=== PATIENT | female | born 1955 | race Caucasian/White ===

== ENCOUNTER 2016-08-01 17:41 | Emergency (ER) | payer OTHER ==
--- NOTE | 2016-08-01 17:52 | EDPHY ---
H & P Time Seen by Provider: 08/01/16 17:51 HPI/ROS: CHIEF COMPLAINT: Chest pain, diaphoresis, paresthesias. HISTORY OF PRESENT ILLNESS: The patient is a 61-year-old female who presents after an episode of nausea and diaphoresis. She has felt nauseated since this morning after breakfast. She did not eat anything all day. While driving just prior to arrival, she developed intense nausea, followed by diaphoresis. She then developed left lower chest pain and bilateral hand paresthesias. She had one episode of vomiting when she arrived to the hospital and the sx improved after vomiting. Her symptoms have mostly subsided. She denies shortness of breath, dizziness, diarrhea, shoulder pain, fever, neck pain, abdominal pain, or other complaints. She has no prior cardiac history. Her grandfather in his 50s of a heart attack but otherwise has no family history. No other RF for cardiac disease. REVIEW OF SYSTEMS: A complete 10-point review of systems was performed and is negative except for those items mentioned in the HPI. Past Medical/Surgical History: Chronic fatigue syndrome. Social History: No recent alcohol Smoking Status: Never smoked Physical Exam: General Appearance: Alert, smiling and pleasant Eyes: Pupils equal and round, no conjunctival pallor or injection ENT, Mouth: Mucous membranes moist Neck: Normal inspection Respiratory: Lungs are clear to auscultation Cardiovascular: Regular rate and rhythm Gastrointestinal: Abdomen is soft and non-tender Neurological: A&O, nonfocal, normal gait Skin: Warm and dry, no rash Extremities: Nontender, no pedal edema Psychiatric: Mood and affect normal Constitutional: Initial Vital Signs Temperature (C) 36.4 C 08/01/16 17:42 Heart Rate 73 08/01/16 17:42 Respiratory Rate 19 08/01/16 17:42 Blood Pressure 122/72 H 08/01/16 17:42 O2 Sat (%) 95 08/01/16 17:42 O2 Delivery Mode Room Air Allergies/Adverse Reactions: No Known Allergies Allergy (Verified 08/01/16 17:41) Home Medications: Medication Instructions Recorded Neurontin 03/15/09 Celecoxib 08/01/16 Famciclovir 08/01/16 Medical Decision Making - Diagnostics EKG Interpretation: EKG interpreted by me reveals normal sinus rhythm, normal axis, normal intervals , ST and T segments normal. Interpretation: normal EKG ED Course/Re-evaluation: 61-year-old female presents with N/V and near syncope, likely vasovagal in etiology. Stat EKG reveals evidence of dysrhythmia or ischemia. I do not suspect cardiac disease in this patient. I reviewed the patient's lab work. It is unremarkable. Troponin is negative. 1900: Reassessed patient. The nausea is beginning to return. 4mg IV Zofran and 1L IV fluid administered for mild dehydration. Plan for reevaluation after fluids. Much better after IV fluids and IV Zofran. Abdomen remained soft and nontender. Tolerating oral fluids well. Will discharge home. Differential Diagnosis: The differential diagnosis for the patient's symptoms included but was not limited to acute coronary syndrome, dysrhythmia, gastroenteritis, gastritis, appendicitis, and medication side effect. - Data Points Laboratory Results: Laboratory Results 08/01/16 17:50 08/01/16 17:50 08/01/16 08/01/16 17:50 17:50 WBC 9.25 10^3/uL 10^3/uL (3.80-9.50) RBC 4.97 10^6/uL 10^6/uL (4.18-5.33) Hgb 15.1 g/dL g/dL (12.6-16.3) Hct 43.6 % % (38.0-47.0) MCV 87.7 fL fL (81.5-99.8) MCH 30.4 pg pg (27.9-34.1) MCHC 34.6 g/dL g/dL (32.4-36.7) RDW 13.9 % % (11.5-15.2) Plt Count 223 10^3/uL 10^3/uL (150-400) MPV 11.0 fL fL (8.7-11.7) Neut % (Auto) 85.8 % H % (39.3-74.2) Lymph % (Auto) 9.3 % L % (15.0-45.0) [place] % (Auto) 3.8 % L % (4.5-13.0) Eos % (Auto) 0.6 % % (0.6-7.6) Baso % (Auto) 0.2 % L % (0.3-1.7) Nucleat RBC Rel Count 0.0 % % (0.0-0.2) Absolute Neuts (auto) 7.93 10^3/uL H 10^3/uL (1.70-6.50) Absolute Lymphs (auto) 0.86 10^3/uL L 10^3/uL (1.00-3.00) Absolute Monos (auto) 0.35 10^3/uL 10^3/uL (0.30-0.80) Absolute Eos (auto) 0.06 10^3/uL 10^3/uL (0.03-0.40) Absolute Basos (auto) 0.02 10^3/uL 10^3/uL (0.02-0.10) Absolute Nucleated RBC 0.00 10^3/uL 10^3/uL (0-0.01) Immature Gran % 0.3 % % (0.0-1.1) Immature Gran # 0.03 10^3/uL 10^3/uL (0.00-0.10) Sodium 141 mEq/L mEq/L (134-144) Potassium 4.1 mEq/L mEq/L (3.5-5.2) Chloride 109 mEq/L mEq/L (97-110) Carbon Dioxide 22 mEq/l mEq/l (22-31) Anion Gap 10 mEq/L mEq/L (8-16) BUN 25 mg/dL H mg/dL (7-23) Creatinine 1.1 mg/dL H mg/dL (0.6-1.0) Estimated GFR 50 Glucose 104 mg/dL H mg/dL (70-100) Calcium 9.9 mg/dL mg/dL (8.5-10.4) Troponin I < 0.012 ng/mL ng/mL (0-0.034) Medications Given: Discontinued Medications Sodium Chloride (Ns) 1,000 mls @ 0 mls/hr IV ONCE ONE PRN Reason: Wide Open Stop: 08/01/16 18:43 Last Admin: 08/01/16 19:07 Dose: 1,000 mls Departure - Departure Disposition: Home, Routine, Self-Care Clinical Impression: Near syncope Vomiting Qualifiers: Vomiting type: unspecified Vomiting Intractability: non-intractable Nausea presence: with nausea Qualified Code(s): R11.2 - Nausea with vomiting, unspecified Condition: Good Instructions: Acute Nausea and Vomiting (ED), Near Syncope (ED) Additional Instructions: Drink plenty of fluids and be sure to get rest. Follow up with your primary care provider for reevaluation. Return to the emergency department for any serious worsening of condition. Referrals: Stephanie Mark MD [Primary Care Provider] - As per Instructions Report Scribed for: Ro Hannon Report Scribed by: Kenny Shearer Date of Report: 08/01/16 Time of Report: 17:52 Physician Review and Approval Statement: 08/01/16 17:52 Portions of this note were transcribed by a medical records clerk. I personally performed a history, physical exam, medical decision making, and confirmed accuracy of information the transcribed note.
--- NOTE | 2016-08-01 17:53 | CPEKG ---
Heart Rate: 66 RR Interval: 909 P-R Interval: 160 QRSD Interval: 96 QT Interval: 428 QTC Interval: 449 P [place]: 49 QRS [place]: 60 T Wave [place]: 63 EKG Severity - NORMAL ECG - EKG Impression: SINUS RHYTHM Electronically Signed By: Ro Hannon 01-Aug-2016 19:31:31
[2016-08-01 18:20] LABS: % IMMATURE GRANULYOCYTES 0.3 % (0.0-1.1); ABSOLUTE IMMATURE GRANULOCYTES 0.03 10^3/uL (0.00-0.10); ADD DIFF? NO; ADD MORPH? NO; ADD SCAN? NO; ATYPICAL LYMPHOCYTE FLAG 0 (0-99); FRAGMENT RBC FLAG 10 (0-99); HEMATOCRIT 43.6 % (38.0-47.0); HEMOGLOBIN 15.1 g/dL (12.6-16.3); LEFT SHIFT FLG 0 (0-99); LIPEMIA HEMOLYSIS FLAG 90 (0-99); MEAN CELL HEMOGLOBIN 30.4 pg (27.9-34.1); MEAN CELL HEMOGLOBIN CONCENTR. 34.6 g/dL (32.4-36.7); MEAN CELL VOLUME 87.7 fL (81.5-99.8); PLATELET CLUMPS FLAG 0 (0-99); PLATELET COUNT 223 10^3/uL (150-400); RED BLOOD CELL COUNT 4.97 10^6/uL (4.18-5.33); RED CELL DISTRIBUTION WIDTH 13.9 % (11.5-15.2)
[2016-08-01 18:37] LABS: ANION GAP 10 mEq/L (8-16); CALCIUM 9.9 mg/dL (8.5-10.4); CARBON DIOXIDE 22 mEq/l (22-31); CHLORIDE 109 mEq/L (97-110); CREATININE 1.1 mg/dL (0.6-1.0); GLOMERULAR FILTRATION RATE 50; GLUCOSE 104 mg/dL (70-100); POTASSIUM 4.1 mEq/L (3.5-5.2); SODIUM 141 mEq/L (134-144)
[2016-08-01] MEDS ORDERED: NS 1,000 ML IV ONE (18:42)
[2016-08-01 18:48] LABS: TROPONIN I < 0.012 ng/mL (0-0.034)
[2016-08-01] MEDS ORDERED: ONDANSETRON 4 MG/2 ML VIAL ONE (18:58)
[2016-08-01] MEDS ORDERED: ONDANSETRON 4MG PREPACK#2 BTL TAKEHOME ONE (19:42)
[2016-08-01 19:48] VITALS: BP 126/76; PULSE 70; RESP 14; TEMP 98.4; O2SAT 94
== END 2016-08-01 19:47 | disposition home or self-care (01) ==
DX: R11.2 Nausea with vomiting, unspecified (principal); R55 Syncope and collapse
CPT/HCPCS: J2405

== ENCOUNTER 2017-03-04 09:07 | Emergency (ER) | payer OTHER ==
[2017-03-04 09:22] VITALS: TEMP 98.2
--- NOTE | 2017-03-04 09:32 | CPEKG ---
Heart Rate: 58 RR Interval: 1034 P-R Interval: 172 QRSD Interval: 96 QT Interval: 444 QTC Interval: 437 P [place]: 45 QRS [place]: 51 T Wave [place]: 60 EKG Severity - ABNORMAL ECG - EKG Impression: SINUS RHYTHM EKG Impression: NONSPECIFIC T ABNORMALITIES, ANTERIOR LEADS Electronically Signed By: Pina Motta 04-Mar-2017 15:26:02
--- NOTE | 2017-03-04 09:54 | EDPHY ---
H & P Stated Complaint: Intermittent L sided CP x 6-7 days ago;Feels SOB when upright HPI/ROS: CHIEF COMPLAINT: Chest discomfort HISTORY OF PRESENT ILLNESS: The patient is a 61 y/o female arriving with her complaining of intermittent left chest discomfort for the last several days with associated dyspnea. She has a history of chronic fatigue syndrome and POTS and notices intermittent dyspnea and lightheadedness while sitting and standing up. She does not take medication for this. This morning she noticed associated left shoulder pain. She has not taken anything for her pain. She denies associated neck or jaw pain, weakness, paresthesias, heart burn. She had a stress test about 7 years ago and does not remember any specific follow up for this. No history of catheterization, hypertension, or diabetes. She reports baseline fevers in the evening related to her chronic fatigue syndrome and some intermittent coughing, not new and not changed. REVIEW OF SYSTEMS: A ten point review of systems was performed and is negative with the exception of the items mentioned in the HPI. Past medical history: Autonomic disorder - POTS; chronic fatigue syndrome; hypercholesterolemia - not on medication Past surgical history: Noncontributory Family history: Grandfather of [place] age 51. Possible hypertension in one parent. Social history: at bedside. Nonsmoker. Very occasional alcohol use. Retired, formerly worked in television. PCP: Dr. Stephanie Pace. Prior medical records reviewed including ED visit 08/01/16 for chest pain. General Appearance: Alert. Vital signs reviewed. Eyes: Pupils equal and round, no conjunctival injection, no discharge. Anicteric. ENT, Mouth: Mucous membranes are moist, no oropharyngeal erythema or edema. Neck: No lymphadenopathy, supple. Respiratory: Lungs are clear to auscultation; no wheezes, rales, or rhonchi. Cardiovascular: Regular rate and rhythm; no murmur, rub, or gallop. Gastrointestinal: Abdomen is soft and nontender, no masses or organomegaly, bowel sounds normal. Skin: Warm and dry, no rashes on exposed skin, normal color. Back: Nontender to palpation over the thoracolumbar spine. No CVAT. Extremities: No lower extremity edema, no calf tenderness or swelling. Neurological: Alert and oriented. Moving all four extremities easily and equally. Psychiatric: Normal affect. - Personal History Current Tetanus Diphtheria and Acellular Pertussis (TDAP): Yes - Medical/Surgical History Hx Asthma: No Hx Chronic Respiratory Disease: No Hx Diabetes: No Hx Cardiac Disease: No Hx Renal Disease: No Hx Cirrhosis: No Hx Alcoholism: No Hx HIV/AIDS: No Hx Splenectomy or Spleen Trauma: No Other PMH: CHRONIC FATIGUE. hypotension r/t autonomic disorder - Social History Smoking Status: Never smoked Constitutional: Initial Vital Signs Temperature (C) 36.8 C 03/04/17 09:15 Heart Rate 77 03/04/17 09:15 Respiratory Rate 16 03/04/17 09:15 Blood Pressure 107/66 03/04/17 09:15 O2 Sat (%) 99 03/04/17 09:15 O2 Delivery Mode Room Air Allergies/Adverse Reactions: No Known Allergies Allergy (Verified 03/04/17 09:18) Home Medications: Medication Instructions Recorded Famciclovir [Famvir 250 MG (*)] 250 mg PO 03/04/17 Gabapentin [Neurontin 100 MG (*)] 100 mg PO HS 03/04/17 Wellchol 03/04/17 celeCOXIB [CeleBREX] 100 mg PO 03/04/17 Medical Decision Making - Diagnostics Imaging: I viewed and interpreted images myself ED Course/Re-evaluation: This is a 61 y/o female with a history of autonomic disorder who presents with a several-day history of intermittent left-sided chest "discomfort" with new associated shoulder pain beginning this morning. Her exam is unremarkable. Plan for IV, labs, EKG, and chest x-ray. 324mg PO aspirin administered. The 12 lead EKG was interpreted by myself. Sinus rhythm rate 58. Anterior T wave inversions new from July. See hard copy and/or "tracemaster" electronic copy for interpretation. Reevaluated patient and discussed findings. Chest x-ray negative. BGL slightly low at 57. Troponin normal. I offered admission for provocative testing, but she would prefer to complete an outpatient work-up. I've referred her to [facility], where she was evaluated previously. Return precautions discussed. She is comfortable with this plan. HEART score is one, making risk of major cardiac event within six weeks quite low (less than 2%). She does not have her try symptoms I do not think that her pain represents a pulmonary embolus. I find no evidence of infection. She has not had chest trauma. Consulted with Sade from [facility]. They will evaluate her as an outpatient with a TOMAS scan as she is unable to tolerate prolonged physical exertion due to her CFS. Differential Diagnosis: Chest pain including but not limited to myocardial ischemia, pulmonary embolus, chest wall pain, pleural inflammation and pulmonary infectious causes. - Data Points Laboratory Results: Laboratory Results 03/04/17 09:38 03/04/17 09:38 Medications Given: Discontinued Medications Aspirin (Aspirin) 324 mg PO EDNOW ONE Stop: 03/04/17 10:11 Last Admin: 03/04/17 10:15 Dose: 324 mg Departure - Departure Disposition: Home, Routine, Self-Care Clinical Impression: Chest pain Qualifiers: Chest pain type: other chest pain Qualified Code(s): R07.89 - Other chest pain ; R07.8 - Other chest pain Condition: Good Instructions: Chest Pain (ED) Additional Instructions: Follow up with Vladimir Joseph this week. I recommend calling today to make an appointment. They are aware you were seen here and will schedule you for a TOMAS scan when you call. Return for any worsening of condition. Referrals: Stephanie Mark MD [Primary Care Provider] - As per Instructions Maurilio Valdez MD [Medical Doctor] - As per Instructions Report Scribed for: Pina Motta Report Scribed by: Olivia Garcia Date of Report: 03/04/17 Time of Report: 10: Physician Review and Approval Statement: 03/04/17 09:53 Portions of this note were transcribed by the medical supervisor. I, Dr. Pina Motta, personally performed the history, physical exam, and medical decision- making; and confirmed the accuracy of the information in the transcribed note.
[2017-03-04] MEDS ORDERED: ASPIRIN 81 MG CHEWABLE TAB PO ONE (10:10)
[2017-03-04 10:14] LABS: % IMMATURE GRANULYOCYTES 0.2 % (0.0-1.1); ABSOLUTE IMMATURE GRANULOCYTES 0.01 10^3/uL (0.00-0.10); ADD DIFF? NO; ADD MORPH? NO; ADD SCAN? NO; ATYPICAL LYMPHOCYTE FLAG 20 (0-99); FRAGMENT RBC FLAG 0 (0-99); HEMATOCRIT 41.5 % (38.0-47.0); HEMOGLOBIN 14.4 g/dL (12.6-16.3); LEFT SHIFT FLG 0 (0-99); LIPEMIA HEMOLYSIS FLAG 90 (0-99); MEAN CELL HEMOGLOBIN CONCENTR. 34.7 g/dL (32.4-36.7); MEAN CELL VOLUME 89.4 fL (81.5-99.8); MEAN PLATELET VOLUME 11.3 fL (8.7-11.7); PLATELET CLUMPS FLAG 30 (0-99); PLATELET COUNT 205 10^3/uL (150-400); RED BLOOD CELL COUNT 4.64 10^6/uL (4.18-5.33); RED CELL DISTRIBUTION WIDTH 14.1 % (11.5-15.2)
[2017-03-04 10:22] LABS: ANION GAP 9 mEq/L (8-16); CALCIUM 9.6 mg/dL (8.5-10.4); CARBON DIOXIDE 24 mEq/l (22-31); CHLORIDE 108 mEq/L (97-110); CREATININE 1.1 mg/dL (0.6-1.0); GLOMERULAR FILTRATION RATE 50; GLUCOSE 57 mg/dL (70-100); SODIUM 141 mEq/L (134-144)
[2017-03-04 10:33] LABS: TROPONIN I < 0.012 ng/mL (0.000-0.034)
[2017-03-04 13:16] VITALS: BP 108/69; PULSE 56; RESP 18; O2SAT 99
== END 2017-03-04 13:16 | disposition home or self-care (01) ==
DX: R07.89 Other chest pain (principal)

== ENCOUNTER 2017-04-05 09:47 | Emergency (ER) | payer OTHER ==
[2017-04-05 09:56] VITALS: RESP 18; TEMP 97.5
[2017-04-05 10:34] LABS: % IMMATURE GRANULYOCYTES 0.2 % (0.0-1.1); ABSOLUTE IMMATURE GRANULOCYTES 0.01 10^3/uL (0.00-0.10); ADD DIFF? NO; ADD MORPH? NO; ADD SCAN? NO; ATYPICAL LYMPHOCYTE FLAG 0 (0-99); FRAGMENT RBC FLAG 0 (0-99); HEMATOCRIT 41.9 % (38.0-47.0); LEFT SHIFT FLG 0 (0-99); LIPEMIA HEMOLYSIS FLAG 90 (0-99); MEAN CELL HEMOGLOBIN 31.6 pg (27.9-34.1); MEAN CELL HEMOGLOBIN CONCENTR. 35.8 g/dL (32.4-36.7); MEAN CELL VOLUME 88.2 fL (81.5-99.8); MEAN PLATELET VOLUME 11.4 fL (8.7-11.7); PLATELET CLUMPS FLAG 0 (0-99); PLATELET COUNT 208 10^3/uL (150-400); RED BLOOD CELL COUNT 4.75 10^6/uL (4.18-5.33); RED CELL DISTRIBUTION WIDTH 13.8 % (11.5-15.2)
--- NOTE | 2017-04-05 10:38 | EDPHY ---
H & P Stated Complaint: Vision changes, confusion Time Seen by Provider: 04/05/17 09:58 HPI/ROS: CHIEF COMPLAINT: Mild intermittent confusion HISTORY OF PRESENT ILLNESS: The patient presents to the ED after she developed 2 episodes of mild intermittent confusion over the past week. The patient reports symptoms that occur in the morning when she gets up out of bed. She does have some mild associated lightheadedness. The patient denies any acute peripheral numbness or weakness. The patient does have a history of chronic fatigue syndrome and does have some mild neuropathic changes at baseline which are unchanged. The patient has a chronic mild cough which is not acutely worsened. The patient denies any history of fall or trauma. She denies a chiropractic or cervical manipulation. The patient denies any complaints of an acute headache. The patient has been stable on her long-term outpatient medications. The patient denies any chest pain or shortness of breath. The patient did recently undergo and underwent fall nuclear stress test. REVIEW OF SYSTEMS: A comprehensive 10 point review of systems is otherwise negative aside from elements mentioned in the history of present illness. Source: Patient Exam Limitations: No limitations - Personal History Current Tetanus/Diphtheria Vaccine: Yes Current Tetanus Diphtheria and Acellular Pertussis (TDAP): Yes - Medical/Surgical History Hx Asthma: No Hx Chronic Respiratory Disease: No Hx Diabetes: No Hx Cardiac Disease: No Hx Renal Disease: No Hx Cirrhosis: No Hx Alcoholism: No Hx HIV/AIDS: No Hx Splenectomy or Spleen Trauma: No Other PMH: CHRONIC FATIGUE, global hypoperfusion,. hypotension r/t autonomic disorder, - Social History Smoking Status: Never smoked - Physical Exam Exam: General Appearance: Alert, no distress Eyes: Pupils equal and round no pallor or injection ENT, Mouth: Mucous membranes moist Respiratory: There are no retractions, lungs are clear to auscultation Cardiovascular: Regular rate and rhythm Gastrointestinal: Abdomen is soft and nontender, no masses, bowel sounds normal Neurological: A&O, normal motor function, normal sensory exam, normal cranial nerves Skin: Warm and dry, no rashes Musculoskeletal: Neck is supple nontender Extremities: symmetrical, full range of motion Psychiatric: Patient is oriented X 3, there is no agitation Constitutional: Initial Vital Signs Temperature (C) 36.4 C 04/05/17 09:51 Heart Rate 66 04/05/17 09:51 Respiratory Rate 18 04/05/17 09:51 Blood Pressure 113/83 H 04/05/17 09:51 O2 Sat (%) 98 04/05/17 09:51 O2 Delivery Mode Room Air Allergies/Adverse Reactions: No Known Allergies Allergy (Verified 03/04/17 09:18) Home Medications: Medication Instructions Recorded Famciclovir [Famvir 250 MG (*)] 250 mg PO 03/04/17 Gabapentin [Neurontin 100 MG (*)] 100 mg PO HS 03/04/17 celeCOXIB [CeleBREX] 100 mg PO 03/04/17 Medical Decision Making - Diagnostics EKG Interpretation: EKG: Complete interpretation has been separately recorded in the [facility] archive. Summary impression: Sinus rhythm, rate 55 ED Course/Re-evaluation: The patient presents to the ED with 2 discrete episodes of mild dizziness and confusion which were precipitated by positional changes. The patient is noted to be neurologically intact in the emergency department. She has no evidence of an obvious arrhythmia. She is not anemic. I find the patient's neurologic examination to be completely normal. She has nothing to suggest meningitis. She has no bruits on exam. She had no localizing neurologic symptoms suggestive of a TIA. The patient has no clinical evidence of meningitis. She does have a complicated past medical history with chronic fatigue syndrome and is on a number of anti viral medications for treatment of this condition. At this point time I do not feel that further workup is indicated. I have asked the patient to follow up with her primary care provider. She should return to the emergency department for the development of a severe headache, persistent neurologic symptoms, unilateral neurologic symptoms or other concerns. Differential Diagnosis: Differential diagnosis considered includes stroke, TIA, positional syncope - Data Points Laboratory Results: Laboratory Results 04/05/17 10:10 04/05/17 10:10 04/05/17 04/05/17 10:10 10:10 WBC 4.28 10^3/uL 10^3/uL (3.80-9.50) RBC 4.75 10^6/uL 10^6/uL (4.18-5.33) Hgb 15.0 g/dL g/dL (12.6-16.3) Hct 41.9 % % (38.0-47.0) MCV 88.2 fL fL (81.5-99.8) MCH 31.6 pg pg (27.9-34.1) MCHC 35.8 g/dL g/dL (32.4-36.7) RDW 13.8 % % (11.5-15.2) Plt Count 208 10^3/uL 10^3/uL (150-400) MPV 11.4 fL fL (8.7-11.7) Neut % (Auto) 58.7 % % (39.3-74.2) Lymph % (Auto) 30.6 % % (15.0-45.0) [place] % (Auto) 7.9 % % (4.5-13.0) Eos % (Auto) 1.4 % % (0.6-7.6) Baso % (Auto) 1.2 % % (0.3-1.7) Nucleat RBC Rel Count 0.0 % % (0.0-0.2) Absolute Neuts (auto) 2.51 10^3/uL 10^3/uL (1.70-6.50) Absolute Lymphs (auto) 1.31 10^3/uL 10^3/uL (1.00-3.00) Absolute Monos (auto) 0.34 10^3/uL 10^3/uL (0.30-0.80) Absolute Eos (auto) 0.06 10^3/uL 10^3/uL (0.03-0.40) Absolute Basos (auto) 0.05 10^3/uL 10^3/uL (0.02-0.10) Absolute Nucleated RBC 0.00 10^3/uL 10^3/uL (0-0.01) Immature Gran % 0.2 % % (0.0-1.1) Immature Gran # 0.01 10^3/uL 10^3/uL (0.00-0.10) Sodium 144 mEq/L mEq/L (134-144) Potassium 3.8 mEq/L mEq/L (3.5-5.2) Chloride 111 mEq/L H mEq/L (97-110) Carbon Dioxide 23 mEq/l mEq/l (22-31) Anion Gap 10 mEq/L mEq/L (8-16) BUN 18 mg/dL mg/dL (7-23) Creatinine 1.0 mg/dL mg/dL (0.6-1.0) Estimated GFR 56 Glucose 79 mg/dL mg/dL (70-100) Calcium 10.0 mg/dL mg/dL (8.5-10.4) Departure - Departure Disposition: Home, Routine, Self-Care Clinical Impression: Confusion Condition: Good Instructions: Altered Mental Status (ED) Additional Instructions: 1. Your EKG and blood test demonstrate no obvious abnormality. 2. Please return to the emergency department for the development of any progressive or worsening neurologic symptoms, severe headache or fever. 3. Please schedule a follow-up appointment to be seen by her primary care provider within the next week. Referrals: Stephanie Mark MD [Primary Care Provider] - As per Instructions
[2017-04-05 10:50] LABS: ANION GAP 10 mEq/L (8-16); CARBON DIOXIDE 23 mEq/l (22-31); CHLORIDE 111 mEq/L (97-110); GLOMERULAR FILTRATION RATE 56; GLUCOSE 79 mg/dL (70-100); POTASSIUM 3.8 mEq/L (3.5-5.2); SODIUM 144 mEq/L (134-144)
--- NOTE | 2017-04-05 11:19 | CPEKG ---
Heart Rate: 55 RR Interval: 1091 P-R Interval: 188 QRSD Interval: 100 QT Interval: 460 QTC Interval: 440 P [place]: 34 QRS [place]: 48 T Wave [place]: 50 EKG Severity - BORDERLINE ECG - EKG Impression: SINUS RHYTHM EKG Impression: BORDERLINE T ABNORMALITIES, ANTERIOR LEADS Electronically Signed By: Jaycob Caraballo 05-Apr-2017 11:28:37
[2017-04-05 11:40] VITALS: BP 126/88; PULSE 84; O2SAT 97
== END 2017-04-05 11:39 | disposition home or self-care (01) ==
DX: R41.0 Disorientation, unspecified (principal)

== ENCOUNTER → 2017-04-09 | Outpatient (CLI) | payer OTHER | LOC: FIMAGING 09:42 | PROVIDERS: ATTEND Internal Medicine | DX: Z12.31 Encounter for screening mammogram for malignant neoplasm of breast (principal) | CPT/HCPCS: G0202 ==

== ENCOUNTER 2018-02-25 14:19 | Observation (INO) | payer OTHER ==
--- NOTE | 2018-02-25 15:12 | EDPHY ---
H & P Stated Complaint: Expressive Aphasia Time Seen by Provider: 02/25/18 14:37 HPI/ROS: CHIEF COMPLAINT: Difficulty with word-finding HISTORY OF PRESENT ILLNESS: 62-year-old female presents with difficulty with word-finding. She was reading an e-mail at 10:00 a.m., when she suddenly was unable to recognize the word on the computer. She tried reading the newspaper, but still was unable to read. She told her about the problem and realized that she was unable to name objects. Associated with a slight weakness left side of face. Took an aspirin. She laid down and rested for 90 min. When she awoke, the speech difficulty facial weakness had resolved. This afternoon, she feels slightly off balance when she stands up and walks. This is not unusual for her and she does not feel this is a new problem. No extremity numbness or weakness. No prior history of TIA or CVA. REVIEW OF SYSTEMS: complete 10 point ROS reviewed and is negative except for the noted elements in the HPI - Personal History Current Tetanus/Diphtheria Vaccine: Yes - Medical/Surgical History Hx Asthma: No Hx Chronic Respiratory Disease: No Hx Diabetes: No Hx Cardiac Disease: No Hx Renal Disease: No Hx Cirrhosis: No Hx Alcoholism: No Hx HIV/AIDS: No Hx Splenectomy or Spleen Trauma: No Other PMH: CHRONIC FATIGUE, global hypoperfusion,. hypotension r/t autonomic disorder, - Social History Smoking Status: Never smoked Constitutional: Initial Vital Signs Temperature (C) 36.6 C 02/25/18 14:27 Heart Rate 64 02/25/18 14:27 Respiratory Rate 18 02/25/18 14:27 Blood Pressure 128/76 H 02/25/18 14:27 O2 Sat (%) 100 02/25/18 14:27 O2 Delivery Mode Room Air Allergies/Adverse Reactions: No Known Allergies Allergy (Verified 02/25/18 14:32) Home Medications: Medication Instructions Recorded Cholecalciferol Vit D3 [Vitamin D3 5,000 units PO DAILY 02/25/18 (*)] Famciclovir 500 mg PO BID 02/25/18 Gabapentin [Neurontin 300 MG (*)] 600 mg PO HS 02/25/18 Herbals/Supplements -Info Only 1 ea PO DAILY 02/25/18 Multivitamins [Multivitamin (*)] 1 each PO DAILY 02/25/18 celeCOXIB [Celebrex (*)] 200 mg PO DAILY 02/25/18 Medical Decision Making - Diagnostics EKG Interpretation: EKG interpreted by me reveals normal sinus rhythm, rate 60, low voltage in the limb leads, T-wave inversions in leads V2 and V3. Imaging Results: Imaging Impressions Head CT 02/25/18 15:09 Impression: 1. Normal CT brain without contrast. 2. Consider MRI of the brain, if there is continued clinical concern. Findings and recommendations discussed with Emergency Department physician, MINGO GIBBONS at 15:34 hour, 02/25/2018. Final report concurs with initial preliminary interpretation. Imaging: Discussed imaging studies w/ score caller Radiologist, I viewed and interpreted images myself ED Course/Re-evaluation: This patient presents with expressive aphasia, now resolved. Clinical presentation consistent with TIA. Stat EKG reveals no evidence of ischemia or dysrhythmia. CT scan of the brain ordered. CT scan is unremarkable, no evidence of acute infarct or hemorrhage. The patient already took aspirin today. Neurologic exam remains normal and unchanged. She will need admission for workup of TIA. The hospitalist service was consulted for admission. Differential Diagnosis: Altered mental status including but not limited to hypoglycemia, infectious process, electrolyte abnormality, head injury, CVA, and intoxicants. - Data Points Laboratory Results: Laboratory Results 02/25/18 14:45 02/25/18 14:45 02/25/18 02/25/18 02/25/18 15:15 14:51 14:45 WBC RBC Hgb POC Hgb 13.9 gm/dL gm/dL (12.6-16.3) Hct POC Hct 41 % % (38-47) MCV MCH MCHC RDW Plt Count MPV Neut % (Auto) Lymph % (Auto) [place] % (Auto) Eos % (Auto) Baso % (Auto) Nucleat RBC Rel Count Absolute Neuts (auto) Absolute Lymphs (auto) Absolute Monos (auto) Absolute Eos (auto) Absolute Basos (auto) Absolute Nucleated RBC Immature Gran % Immature Gran # ESR PT 13.3 SEC SEC (12.0-15.0) INR 0.99 (0.83-1.16) APTT 30.4 SEC SEC (23.0-38.0) POC Sodium 143 mEq/L mEq/L (135-145) Sodium POC Potassium 3.7 mEq/L mEq/L (3.3-5.0) Potassium POC Chloride 112 mEq/L H mEq/L (97-110) Chloride Carbon Dioxide Anion Gap POC BUN 21 mg/dL mg/dL (7-23) BUN Creatinine POC Creatinine 0.9 mg/dL mg/dL (0.6-1.0) Estimated GFR Glucose POC Glucose 96 mg/dL mg/dL (70-100) Hemoglobin A1c Estim Average Glucose Calcium POC Troponin I 0.00 ng/mL ng/mL (0.00-0.08) 02/25/18 02/25/18 02/25/18 14:45 14:45 14:45 WBC RBC Hgb POC Hgb Hct 41.6 % % (38.0-47.0) POC Hct MCV MCH MCHC RDW Plt Count MPV Neut % (Auto) Lymph % (Auto) [place] % (Auto) Eos % (Auto) Baso % (Auto) Nucleat RBC Rel Count Absolute Neuts (auto) Absolute Lymphs (auto) Absolute Monos (auto) Absolute Eos (auto) Absolute Basos (auto) Absolute Nucleated RBC Immature Gran % Immature Gran # ESR 7 MM/HR MM/HR (0-30) PT INR APTT POC Sodium Sodium 141 mEq/L mEq/L (135-145) POC Potassium Potassium 4.1 mEq/L mEq/L (3.3-5.0) POC Chloride Chloride 111 mEq/L H mEq/L (97-110) Carbon Dioxide 20 mEq/l L mEq/l (22-31) Anion Gap 10 mEq/L mEq/L (6-14) POC BUN BUN 20 mg/dL mg/dL (7-23) Creatinine 1.0 mg/dL mg/dL (0.6-1.0) POC Creatinine Estimated GFR 56 Glucose 96 mg/dL mg/dL (70-100) POC Glucose Hemoglobin A1c 5.3 % % (4.0-6.0) Estim Average Glucose 105 mg/dL mg/dL (68-126) Calcium 10.2 mg/dL mg/dL (8.5-10.4) POC Troponin I 02/25/18 14:45 WBC 5.41 10^3/uL 10^3/uL (3.80-9.50) RBC 4.77 10^6/uL 10^6/uL (4.18-5.33) Hgb 14.6 g/dL g/dL (12.6-16.3) POC Hgb Hct 41.4 % % (38.0-47.0) POC Hct MCV 86.8 fL fL (81.5-99.8) MCH 30.6 pg pg (27.9-34.1) MCHC 35.3 g/dL g/dL (32.4-36.7) RDW 14.0 % % (11.5-15.2) Plt Count 211 10^3/uL 10^3/uL (150-400) MPV 11.5 fL fL (8.7-11.7) Neut % (Auto) 58.5 % % (39.3-74.2) Lymph % (Auto) 31.4 % % (15.0-45.0) [place] % (Auto) 8.1 % % (4.5-13.0) Eos % (Auto) 0.9 % % (0.6-7.6) Baso % (Auto) 0.9 % % (0.3-1.7) Nucleat RBC Rel Count 0.0 % % (0.0-0.2) Absolute Neuts (auto) 3.16 10^3/uL 10^3/uL (1.70-6.50) Absolute Lymphs (auto) 1.70 10^3/uL 10^3/uL (1.00-3.00) Absolute Monos (auto) 0.44 10^3/uL 10^3/uL (0.30-0.80) Absolute Eos (auto) 0.05 10^3/uL 10^3/uL (0.03-0.40) Absolute Basos (auto) 0.05 10^3/uL 10^3/uL (0.02-0.10) Absolute Nucleated RBC 0.00 10^3/uL 10^3/uL (0-0.01) Immature Gran % 0.2 % % (0.0-1.1) Immature Gran # 0.01 10^3/uL 10^3/uL (0.00-0.10) ESR PT INR APTT POC Sodium Sodium POC Potassium Potassium POC Chloride Chloride Carbon Dioxide Anion Gap POC BUN BUN Creatinine POC Creatinine Estimated GFR Glucose POC Glucose Hemoglobin A1c Estim Average Glucose Calcium POC Troponin I Medications Given: Atorvastatin Calcium (Lipitor) 10 mg PO DAILY [facility] Stop: 08/24/18 17:29 Last Admin: 02/25/18 18:08 Dose: 10 mg Famciclovir (Famvir) 500 mg PO BID ISIDRO Stop: 03/27/18 20:59 Last Admin: 02/25/18 18:27 Dose: Not Given Point of Care Test Results: Chemistry 02/25/18 02/25/18 15:15 14:51 POC Sodium 143 mEq/L mEq/L (135-145) POC Potassium 3.7 mEq/L mEq/L (3.3-5.0) POC Chloride 112 mEq/L H mEq/L (97-110) POC BUN 21 mg/dL mg/dL (7-23) POC Creatinine 0.9 mg/dL mg/dL (0.6-1.0) POC Glucose 96 mg/dL mg/dL (70-100) POC Troponin I 0.00 ng/mL ng/mL (0.00-0.08) ISTAT H&H 02/25/18 14:51 POC Hgb 13.9 gm/dL gm/dL (12.6-16.3) POC Hct 41 % % (38-47) Departure - Departure Disposition: [facility] Inpatient Acute Clinical Impression: Transient cerebral ischemia Qualifiers: Transient cerebral ischemia type: carotid artery syndrome (hemispheric) Qualified Code(s): G45.1 - Carotid artery syndrome (hemispheric) Condition: Fair
[2018-02-25 15:25] LABS: PLATELET COUNT 211 10^3/uL (150-400)
--- NOTE | 2018-02-25 16:18 | CPEKG ---
Test Reason : OPEN Blood Pressure : / mmHG Vent. Rate : 060 BPM Atrial Rate : 060 BPM P-R Int : 166 ms QRS Dur : 102 ms QT Int : 446 ms P-R-T Axes : 032 059 060 degrees QTc Int : 446 ms Sinus rhythm Low voltage, precordial leads Borderline T abnormalities, anterior leads Confirmed by Ro Hannon ([id number]) on 02/25/2018 4:18:49 PM Referred By: Confirmed By:Ro Hannon
[2018-02-25] MEDS ORDERED: ONDANSETRON 4 MG/2 ML VIAL IVP PRN (17:12)
[2018-02-25] MEDS ORDERED: ACETAMINOPHEN 325 MG TAB PO PRN (17:12)
[2018-02-25] MEDS ORDERED: ONDANSETRON DISINTEGRATING 4 MG TAB PO PRN (17:12)
--- NOTE | 2018-02-25 17:46 | PDGENHP ---
<Megan Mccauley - Last Filed: 02/25/18 17:42> History and Physical - Chief Complaint Receptive and expressive asphasia - History of Present Illness 62 y/o with history of chronic fatigue syndrome and neural meditated hypotensive autonomic disorder presents with receptive and expressive asphasia. She was reading e-mails on the computer when suddenly she couldn't comprehend the meaning of the words and couldn't find the correct word to use. She has had a mild,dull headache to her left parietal area since yesterday and the ache did increase in intensity as she was experiencing her confusion. She also felt pressure underneath her left eye. Her gave her aspirin and she laid down to rest for 90 minutes because she felt exhausted but didn't fall asleep. After her resting, she no longer had confusion and was able to comprehend words and use the appropriate words. She took a nap and slept for approximately 30 minutes. After that time, her and her decided to call their doctor who encouraged her to seek further medical assistance. She denies chest pains, palpitations, SOB, diplopia or any vision changes, N/V, diarrhea, urinary issues, fevers, chills, numbness/tingling, weakness. Past Medical/Surgical History 1. Chronic Fatigue Syndrome (Diagnosed 30 years ago; reports cognitive disability and gait disturbances) 2. Neural-mediated Hypotension - Autonomic Disorder 3. 4. Caesarean section 5. Lymph Node Biopsy (result benign) 6. EPV/Coxsackie B History Information - Allergies/Home Medication List Allergies/Adverse Reactions: No Known Allergies Allergy (Verified 02/25/18 14:32) Home Medications: Cholecalciferol Vit D3 [Vitamin D3 (*)] 5,000 units PO DAILY 02/25/18 [Last Taken 02/25/18] Famciclovir 500 mg PO BID 02/25/18 [Last Taken 02/24/18 21:00] Gabapentin [Neurontin 300 MG (*)] 600 mg PO HS 02/25/18 [Last Taken 02/24/18] Herbals/Supplements -Info Only 1 ea PO DAILY 02/25/18 [Last Taken 02/24/18] Multivitamins [Multivitamin (*)] 1 each PO DAILY 02/25/18 [Last Taken 02/25/18] celeCOXIB [Celebrex (*)] 200 mg PO DAILY 02/25/18 [Last Taken 02/24/18] I have personally reviewed and updated: family history, medical history, social history, surgical history Past Medical History: See HPI list - Family History Positive for: hypertension (Mother), stroke (Aunt ) Additional family history: Brother and mother - Parkinson's - Social History Smoking Status: Never smoked Alcohol Use: None Drug Use: None Review of Systems Review of Systems: ROS: 10pt was reviewed & negative except for what was stated in HPI & below Constitutional: Reports: no symptoms (Overall, she feels like her health has been great until this episode) EENMT: Reports: no symptoms Cardiac: Reports: no symptoms Respiratory: Reports: no symptoms Gastrointestinal: Reports: no symptoms Genitourinary: Reports: no symptoms Muscolosketal: Reports: no symptoms Skin: Reports: no symptoms Neurological: Reports: headache, pre-existing deficit (Chronic Fatigue Syndrome) , other (Described left side of face feeling "different" ) Hematologic/Lymphatic: Reports: no symptoms Immunologic/Allergy: Reports: no symptoms Physical Exam Physical Exam: Lab data and Imaging Reviewed Unremarkable lab data EKG: No ischemia or dysrhythmia noted. MRI Brain: Pending US Carotid: Pending US ECHO: Pending Temp Pulse Resp BP Pulse Ox 36.6 C 65 18 106/76 99 02/25/18 14:27 02/25/18 17:07 02/25/18 17:07 02/25/18 17:07 02/25/18 17:07 Constitutional: no apparent distress, appears nourished, not in pain Eyes: PERRL, anicteric sclera, EOMI, other (Bilateral pupil size 4mm) Ears, Nose, Mouth, Throat: moist mucous membranes, hearing normal, ears appear normal, no oral mucosal ulcers Cardiovascular: regular rate and rhythym, no murmur, rub, or gallop, pulses symmetric bilaterally, No edema Peripheral Pulses: 2+: dorsalis-pedis (R) (Radial 2+), dorsalis-pedis (L) ( Radial 2+) Respiratory: no respiratory distress, no rales or rhonchi, clear to auscultation Gastrointestinal: normoactive bowel sounds, soft, non-tender abdomen, no palpable masses Genitourinary: no bladder fullness, no bladder tenderness Skin: warm, normal color, no rashes or abrasions, no fluctuance, no induration, No mottled Musculoskeletal: full muscle strength, no muscle tenderness, normal joint ROM, no joint effusions Neurologic: AAOx3, sensation intact bilaterally, CN II-XII Intact Psychiatric: interacting appropriately, not anxious, not encephalopathic, thought process linear Lymph, Heme, Immunologic: no cervical LAD, no supraclavicular LAD Lab Data & Imaging Review 02/25/18 14:45 02/25/18 14:45 WBC 5.41 10^3/uL (3.80-9.50) 02/25/18 14:45 RBC 4.77 10^6/uL (4.18-5.33) 02/25/18 14:45 Hgb 14.6 g/dL (12.6-16.3) 02/25/18 14:45 POC Hgb 13.9 gm/dL (12.6-16.3) 02/25/18 14:51 Hct 41.4 % (38.0-47.0) 02/25/18 14:45 POC Hct 41 % (38-47) 02/25/18 14:51 MCV 86.8 fL (81.5-99.8) 02/25/18 14:45 MCH 30.6 pg (27.9-34.1) 02/25/18 14:45 MCHC 35.3 g/dL (32.4-36.7) 02/25/18 14:45 RDW 14.0 % (11.5-15.2) 02/25/18 14:45 Plt Count 211 10^3/uL (150-400) 02/25/18 14:45 MPV 11.5 fL (8.7-11.7) 02/25/18 14:45 Neut % (Auto) 58.5 % (39.3-74.2) 02/25/18 14:45 Lymph % (Auto) 31.4 % (15.0-45.0) 02/25/18 14:45 [place] % (Auto) 8.1 % (4.5-13.0) 02/25/18 14:45 Eos % (Auto) 0.9 % (0.6-7.6) 02/25/18 14:45 Baso % (Auto) 0.9 % (0.3-1.7) 02/25/18 14:45 Nucleat RBC Rel Count 0.0 % (0.0-0.2) 02/25/18 14:45 Absolute Neuts (auto) 3.16 10^3/uL (1.70-6.50) 02/25/18 14:45 Absolute Lymphs (auto) 1.70 10^3/uL (1.00-3.00) 02/25/18 14:45 Absolute Monos (auto) 0.44 10^3/uL (0.30-0.80) 02/25/18 14:45 Absolute Eos (auto) 0.05 10^3/uL (0.03-0.40) 02/25/18 14:45 Absolute Basos (auto) 0.05 10^3/uL (0.02-0.10) 02/25/18 14:45 Absolute Nucleated RBC 0.00 10^3/uL (0-0.01) 02/25/18 14:45 Immature Gran % 0.2 % (0.0-1.1) 02/25/18 14:45 Immature Gran # 0.01 10^3/uL (0.00-0.10) 02/25/18 14:45 POC Sodium 143 mEq/L (135-145) 02/25/18 14:51 Sodium 141 mEq/L (135-145) 02/25/18 14:45 POC Potassium 3.7 mEq/L (3.3-5.0) 02/25/18 14:51 Potassium 4.1 mEq/L (3.3-5.0) 02/25/18 14:45 POC Chloride 112 mEq/L (97-110) H 02/25/18 14:51 Chloride 111 mEq/L (97-110) H 02/25/18 14:45 Carbon Dioxide 20 mEq/l (22-31) L 02/25/18 14:45 Anion Gap 10 mEq/L (6-14) 02/25/18 14:45 POC BUN 21 mg/dL (7-23) 02/25/18 14:51 BUN 20 mg/dL (7-23) 02/25/18 14:45 Creatinine 1.0 mg/dL (0.6-1.0) 02/25/18 14:45 POC Creatinine 0.9 mg/dL (0.6-1.0) 02/25/18 14:51 Estimated GFR 56 02/25/18 14:45 Glucose 96 mg/dL (70-100) 02/25/18 14:45 POC Glucose 96 mg/dL (70-100) 02/25/18 14:51 Calcium 10.2 mg/dL (8.5-10.4) 02/25/18 14:45 POC Troponin I 0.00 ng/mL (0.00-0.08) 02/25/18 15:15 Assessment & Plan Assessment: 62 y/o with history of chronic fatigue syndrome and neural meditated hypotensive autonomic disorder presents with receptive and expressive asphasia, suspected TIA. Will need to r/o any cardiac relationship. Plan: 1. TIA versus Cardiac involvement: CT w/o IV contrast was unremarkable. -Neurology consult -MRI Brain w/o IV contrast -Carotid US -Echo w/Bubbler -NIH Stroke Scale -Tele -Swallow Eval -Lab: A1c, ESR, Lipid Panel, PT/PTT -ASA, Lipitor 2. Chronic Fatigue Syndrome: continue to monitor. Continue Gabapentin - it helps her sleep 3. EBV/Coxsackie: continue Famciclovir. Hold Celebrex and educate pt on black box warning for high risk of stroke with this medication. Diet: NPO - may progress to regular if passes swallow test VTE ppx: SCDs, ASA Code: Full Dispo: Admit to obs <Sergey Raines - Last Filed: 02/25/18 19:47> History and Physical - History of Present Illness Review of Systems Review of Systems: Physical Exam Physical Exam: Temp Pulse Resp BP Pulse Ox 36.6 C 65 18 106/76 99 02/25/18 14:27 02/25/18 17:07 02/25/18 17:07 02/25/18 17:07 02/25/18 17:07 Constitutional: no apparent distress, appears nourished, not in pain Eyes: PERRL, anicteric sclera, EOMI Ears, Nose, Mouth, Throat: moist mucous membranes, hearing normal, ears appear normal, no oral mucosal ulcers Cardiovascular: regular rate and rhythym, no murmur, rub, or gallop, No edema Gastrointestinal: normoactive bowel sounds, soft, non-tender abdomen, no palpable masses Genitourinary: no bladder fullness, no bladder tenderness Musculoskeletal: full muscle strength, no muscle tenderness, normal joint ROM, no joint effusions Neurologic: AAOx3, sensation intact bilaterally, CN II-XII Intact, No pronator drift Psychiatric: interacting appropriately, not anxious, not encephalopathic, thought process linear Lymph, Heme, Immunologic: no cervical LAD, no supraclavicular LAD Lab Data & Imaging Review 02/25/18 14:45 02/25/18 14:45 WBC 5.41 10^3/uL (3.80-9.50) 02/25/18 14:45 RBC 4.77 10^6/uL (4.18-5.33) 02/25/18 14:45 Hgb 14.6 g/dL (12.6-16.3) 02/25/18 14:45 POC Hgb 13.9 gm/dL (12.6-16.3) 02/25/18 14:51 Hct 41.6 % (38.0-47.0) 02/25/18 14:45 POC Hct 41 % (38-47) 02/25/18 14:51 MCV 86.8 fL (81.5-99.8) 02/25/18 14:45 MCH 30.6 pg (27.9-34.1) 02/25/18 14:45 MCHC 35.3 g/dL (32.4-36.7) 02/25/18 14:45 RDW 14.0 % (11.5-15.2) 02/25/18 14:45 Plt Count 211 10^3/uL (150-400) 02/25/18 14:45 MPV 11.5 fL (8.7-11.7) 02/25/18 14:45 Neut % (Auto) 58.5 % (39.3-74.2) 02/25/18 14:45 Lymph % (Auto) 31.4 % (15.0-45.0) 02/25/18 14:45 [place] % (Auto) 8.1 % (4.5-13.0) 02/25/18 14:45 Eos % (Auto) 0.9 % (0.6-7.6) 02/25/18 14:45 Baso % (Auto) 0.9 % (0.3-1.7) 02/25/18 14:45 Nucleat RBC Rel Count 0.0 % (0.0-0.2) 02/25/18 14:45 Absolute Neuts (auto) 3.16 10^3/uL (1.70-6.50) 02/25/18 14:45 Absolute Lymphs (auto) 1.70 10^3/uL (1.00-3.00) 02/25/18 14:45 Absolute Monos (auto) 0.44 10^3/uL (0.30-0.80) 02/25/18 14:45 Absolute Eos (auto) 0.05 10^3/uL (0.03-0.40) 02/25/18 14:45 Absolute Basos (auto) 0.05 10^3/uL (0.02-0.10) 02/25/18 14:45 Absolute Nucleated RBC 0.00 10^3/uL (0-0.01) 02/25/18 14:45 Immature Gran % 0.2 % (0.0-1.1) 02/25/18 14:45 Immature Gran # 0.01 10^3/uL (0.00-0.10) 02/25/18 14:45 ESR 7 MM/HR (0-30) 02/25/18 14:45 PT 13.3 SEC (12.0-15.0) 02/25/18 14:45 INR 0.99 (0.83-1.16) 02/25/18 14:45 APTT 30.4 SEC (23.0-38.0) 02/25/18 14:45 POC Sodium 143 mEq/L (135-145) 02/25/18 14:51 Sodium 141 mEq/L (135-145) 02/25/18 14:45 POC Potassium 3.7 mEq/L (3.3-5.0) 02/25/18 14:51 Potassium 4.1 mEq/L (3.3-5.0) 02/25/18 14:45 POC Chloride 112 mEq/L (97-110) H 02/25/18 14:51 Chloride 111 mEq/L (97-110) H 02/25/18 14:45 Carbon Dioxide 20 mEq/l (22-31) L 02/25/18 14:45 Anion Gap 10 mEq/L (6-14) 02/25/18 14:45 POC BUN 21 mg/dL (7-23) 02/25/18 14:51 BUN 20 mg/dL (7-23) 02/25/18 14:45 Creatinine 1.0 mg/dL (0.6-1.0) 02/25/18 14:45 POC Creatinine 0.9 mg/dL (0.6-1.0) 02/25/18 14:51 Estimated GFR 56 02/25/18 14:45 Glucose 96 mg/dL (70-100) 02/25/18 14:45 POC Glucose 96 mg/dL (70-100) 02/25/18 14:51 Hemoglobin A1c 5.3 % (4.0-6.0) 02/25/18 14:45 Estim Average Glucose 105 mg/dL (68-126) 02/25/18 14:45 Calcium 10.2 mg/dL (8.5-10.4) 02/25/18 14:45 POC Troponin I 0.00 ng/mL (0.00-0.08) 02/25/18 15:15 Assessment & Plan Plan: 1. Expressive aphasia TIA vs cognitive impairment from CFS vs other -agree with TIA workup 2. CFS -hold celebrex given black bix warning for cva/cad. will need to be discussed with patient in am once we have more information
[2018-02-25 18:08] LABS: INR 0.99 (0.83-1.16); PROTIME(PATIENT) 13.3 SEC (12.0-15.0)
[2018-02-25] MEDS: ATORVASTATIN CALCIUM 10 MG TAB PO SCH (18:08)
[2018-02-25] MEDS: FAMCICLOVIR 250 MG TAB PO SCH (18:27)
[2018-02-25] MEDS ORDERED: GABAPENTIN 300 MG CAP PO SCH (21:00)
[2018-02-26] MEDS ORDERED: CHOLECALCIFEROL VIT D3 2,000 UNITS TAB/CAP PO SCH (09:00)
[2018-02-26] MEDS ORDERED: Herbals/Supplements -Info Only PO SCH (09:00)
[2018-02-26] MEDS ORDERED: ASPIRIN 81 MG CHEWABLE TAB PO SCH (09:00)
[2018-02-26] MEDS ORDERED: MULTIVITAMINS 1 EACH TAB PO SCH (09:00)
--- NOTE | 2018-02-26 10:38 | ASMTCMCOM ---
CM Note CM Note Notes: Pt came in for possible TIA, she was evaluated by [facility] PULLER and PT. She is cleared for home, she will dc home w/support of when medically stable, CM available for any changes. DC Plan: Indepedent Date Signed: 02/26/2018 10:37 AM Electronically Signed By:Tiara Kwan RN
[2018-02-26] MEDS: ATORVASTATIN CALCIUM 10 MG TAB PO SCH (10:48)
[2018-02-26] MEDS: FAMCICLOVIR 250 MG TAB PO SCH (10:50)
--- NOTE | 2018-02-26 10:52 | GCON ---
NEUROLOGY CONSULT DATE OF CONSULTATION: 02/26/2018 REFERRING PHYSICIAN: Dr. Raines CHIEF COMPLAINT: Transient neurologic symptoms. HISTORY OF PRESENT ILLNESS: The patient is a very pleasant 62-year-old lady with a past medical history that includes chronic fatigue syndrome and some type of dysautonomia. She also has a family history of migraine with aura in her father and their daughter, who had a hemiplegic migraine. Their son also has had migraine with aura, and the patient herself has had migraines. Yesterday, she developed some pressure in the vertex area and noticed that she had trouble reading an e-mail in terms of actually looking at the letters and translating them into words. She then looked at a newspaper, which she was able to read the headlines. She then went to speak to her and had some occasional word substitutions. All of these language symptoms lasted around 15 minutes and then resolved. She then developed a left retro-orbital mild headache with nausea. In addition, when the left-sided headache started developing, she had some paresthesias in the left face. She came into the emergency department for evaluation. In the emergency department, she had completely resolved symptoms prior to presentation to the ED. I reviewed the ED records. She was worked up for TIA and admitted. MRI brain showed no acute infarct. It was essentially normal. Carotid ultrasound showed some mild plaquing without significant obstruction. She has not had atrial fibrillation on telemetry that I am aware of. REVIEW OF SYSTEMS: Ten-point review of systems was done, only pertinent to the HPI. This event occurred while not on a daily aspirin. For past medical history, social history, family history, allergies, and medications, see Dr. Raines's note, H and P. PHYSICAL EXAMINATION: VITAL SIGNS: Blood pressure 105/57, temperature 36.4, heart rate 63. GENERAL: In no acute distress, very pleasant lady. NEUROLOGIC : Higher mental function: She can name 5/5, repeat 5/5, follow commands 5/5. No aphasia. Cranial nerve exam 2 through 7, 11, and 12 were normal. Motor exam is normal for strength and tone throughout. Coordination and sensation are both normal in upper and lower extremities. IMPRESSION/PLAN: 1. Transient neurologic symptoms, resolved. 2. Personal and family history of migraine with aura. Overall, the patient's clinical history may have been consistent with a TIA, but a complex migraine is also in the differential diagnosis. The symptoms she presents localizes to both hemispheres potentially. She had language symptoms, and she is right-handed, which would suggest a left hemisphere process. Then she developed left facial paresthesias, which typically would be right hemisphere or brainstem. She then developed fairly typical migrainous symptoms with a left retro-orbital headache and nausea. In any case, based on her age, I think it would be prudent to complete the evaluation for possible transient ischemic attack. As such, I would recommend discharge home on aspirin, statin, and follow up with Cardiology for a 30-day event monitor for further screening for paroxysmal atrial fibrillation. Echocardiogram is pending. If there are no significant abnormalities, then the plan will be as above. If there are any significant abnormalities on echocardiogram, please contact the neurology service for further recommendations. No further recommendations now. Plan discussed with primary hospitalist. We will continue to follow this very pleasant lady as needed while she is in the hospital. Please do not hesitate to call if there are any questions or changes in neurologic status with this patient. Forty-five total minutes of floor time today reviewing MRI brain, head CT, carotid Doppler, labs, counseling the patient, and coordination of care. Addendum: Echocardiogram is complete. No intracardiac thrombus, no right to left atrial shunting. /[id number]/MODL MTDD
--- NOTE | 2018-02-26 11:22 | ECHO ---
[email or web address] [address] [address] Main: [phone] Fax: Transthoracic Echocardiogram Name: NADER FORBES MR#: [id number] Study Date: 02/26/2018 Study Time: 09:17 AM Date of : 1955 Age: 62 year(s) Height: 175.3 cm (69 in.) Weight: 63.5 kg (140 lb.) BSA: 1.78 m2 Gender: Female Examination: Echo Indication: expressive asphasia Image Quality: Adequate Contrast: Requested by: Megan Mccauley BP: 105 mmHg/57 mmHg Heart Rate: Rhythm: Indication: expressive asphasia Procedure Staff Buggy Ladle Tender: Effie Blanc RD Reading Physician: Gregorio Copeland MD Requesting Provider: Conclusions: Normal size left ventricle. No LV hypertrophy. Normal global systolic LV function. EF is 74 %. Grade 1 diastolic dysfunction (abnormal relaxation). Normal RV function. The left atrium is normal in size. An agitated saline study was performed and was negative for intracardiac shunting. The right atrium is normal in size. Trivial pericardial effusion. There is pericardial fat. No pleural effusion. Measurements: Chambers Valvular Assessment AV/MV Valvular Assessment TV/PV Normal Normal Normal Name Value Range Name Value Range Name Value Range Ao Vidya (2D): 2.3 cm (1.4 cm-2.6 AV Vmax: 1.40 m/s (1 m/s-1.7 TR Vmax: 2.01 mm/s ( - ) cm) m/s) TR PGmax: 16 mmHg ( - ) IVSd (2D): 0.7 cm (0.6 cm-1.1 AV maxP mmHg ( - ) syst. PAP: 21 mmHg ( - ) cm) AV meanP mmHg ( - ) PV Vmax: 0.98 m/s (0.6 m/s-0.9 LVDd (2D): 3.9 cm (3.9 cm-5.3 ANJEL (VTI): 1.6 cm ( - ) m/s) cm) MV E Vmax: 0.52 m/s ( - ) PV PGmax: 4 mmHg ( - ) LVDs (2D): 2.4 cm (2.1 cm-4 MV A Vmax: 0.67 m/s ( - ) cm) MV E/A: 0.78 ( - ) LVPWd (2D): 0.7 cm ( - ) MV PHT: 0.071 s ( - ) LVOTd 1.6 cm 1.6 cm mm MVA (PHT): 3.1 s ( - ) LVEF (BP): 74 % (>=55 %) RVDd(2D): 3.1 cm (1.9 cm-3.8 cmmm) Patient: NADER FORBES Study Date: 02/26/2018 Page 1 of 2 09:17 AM Continued Measurements: Chambers Valvular Assessment AV/MV Valvular Assessment TV/PV Name Value Name Value Name Value LADs: 3.1 cm MV DecTime: 222 m/s CVP (est.): 5 mmHg LADs Lon.9 cm MV E' Septal: 0.08 m/s LA Area: 14.0 cm2 MV E/E' Septal: 6.20 LA Volume: 33 ml MV E/E' Lateral: 5.40 LA Volume Index: 18.5 ml/m2 RA Area: 12.3 cm2 Additional Vessels Name Value Ao Ascendin.7 cm Inferior Vena Cava: 1.6 cm Findings: Left Ventricle: Normal size left ventricle. No LV hypertrophy. Normal global systolic LV function. EF is 74 %. No regional wall motion abnormality. Grade 1 diastolic dysfunction (abnormal relaxation). Right Ventricle: Normal size right ventricle. Normal RV function. Left Atrium: The left atrium is normal in size. An agitated saline study was performed and was negative for intracardiac shunting. Right Atrium: The right atrium is normal in size. Mitral Valve: The mitral valve is normal in appearance and function. Trivial to mild mitral regurgitation. No mitral stenosis is present. Aortic Valve: The aortic valve is tri-leaflet. There is no significant aortic valve regurgitation. No aortic valve stenosis is present. Tricuspid Valve: The tricuspid valve is normal in appearance and function. Trivial tricuspid valve regurgitation. The pulmonary artery pressure is normal. Right ventricular systolic pressure measures 21mmHg. Pulmonic Valve: The pulmonic valve is normal in appearance and function. Trivial pulmonic valve regurgitation. Aorta: The aorta is normal. Normal size aortic root measuring 2.3 cm. Normal size ascending aorta measuring 2.7 cm. IVC: The IVC is normal sized. Pericardium: Trivial pericardial effusion. No echocardiographic evidence of hemodynamic compromise. There is pericardial fat. No pleural effusion. (No Signature Object) Patient: NADER FORBES Study Date: 02/26/2018 Page 2 of 2 09:17 AM [id number]
[2018-02-26 11:37] VITALS: BP 104/67
--- NOTE | 2018-02-26 13:28 | GDS ---
DISCHARGE DIAGNOSES: 1. Transient neurological symptoms. 2. Migraine. CONSULTATIONS: Chuck Park MD, of neurology. STUDIES AND PROCEDURES DONE: 1. Echocardiogram. 2. Carotid Doppler study. 3. MRI of the brain. 4. CT of the head. PHYSICAL EXAM: GENERAL: The patient is alert. VITAL SIGNS: Afebrile at 37.1, pulse 68, respirator y rate 16. Blood pressure is 104/67. She is saturating 96% on room air. I have seen and evaluated the patient on the day of discharge. HOSPITAL COURSE: The patient is a 62-year-old female who presented to the emergency room with compla ints of head pressure with word finding and substitution difficulty. She was evaluated during this h ospitalization and noted to have transient neurological symptoms which have resolved. These are like ly secondary to either TIA versus a migraine. She did receive a consultation from Dr. Park of neurolo gy. Multiple studies were performed including echocardiogram, carotid Doppler study, MRI of the brai n, and CT of the head. She is hemodynamically stable. Her symptoms have completely resolved, and pavel meyer will be discharged home. She has been initiated on Lipitor during this hospitalization secondary t o an elevated LDL level and a baby aspirin given the current symptoms. She will follow up in the out patient with Dr. Park as well as her primary care physician, Dr. Stephanie Mark. She will also follow up with a tufter hand to receive a 30-day Holter monitor. There are no pending studies. DISCHARGE MEDICATIONS: Please refer to EMR form. I have provided the patient a prescription for Lip itor and other new medications include 81 mg aspirin daily. I have discussed the patient's dispositi on with Dr. Park, who is in agreement with this plan. /[id number]/MODL
== END 2018-02-26 12:55 | disposition home or self-care (01) ==
LOC: F3N 17:55
PROVIDERS: ADMIT Family Medicine; ATTEND Family Medicine
DX: R29.818 Other symptoms and signs involving the nervous system (principal); G43.909 Migraine, unspecified, not intractable, without status migrainosus
CPT/HCPCS: 70450; 70551; 92523; 93005; 93306; 93880; 97161; 99285; G0378; 82435-PO; 82565-PO; 82947-PO; 84132-PO; 84295-PO; 84484-PO; 84520-PO; 85014-PO

== ENCOUNTER → 2018-08-21 | Outpatient (CLI) | payer OTHER | LOC: BMCIMAGING 13:22 | PROVIDERS: ATTEND Internal Medicine | DX: R10.2 Pelvic and perineal pain (principal); R10.32 Left lower quadrant pain ==